=== PATIENT | female | born 1975 | race Two or more races ===

== ENCOUNTER → 2024-12-23 | Outpatient (CLI) | payer MEDICAID, SELFPAY ==
--- NOTE | 2024-12-23 16:00 | XR_ITS ---
Examination: CT abdomen without contrast. Coronal 2-D reconstructions. Sagittal 2-D reconstructions. Date and time of exam:December 23, 2024, 1700 hours, comparison January 27, 2023 INDICATIONS: Hematuria unspecified, right upper abdominal pain left upper abdominal pain one year CTDI: vol (mGy): 6.92 DLP: (mGycm): 233. Technique: Axial images of the abdomen have been obtained, 3 mm slice thickness, without intravenous contrast 2-D sagittal coronal reconstructions Low dose protocols were performed. One or more of the following dose reduction techniques were used; automated exposure control, adjustment of the mA and/or KV according to patient size, use of iterative reconstruction technique. Findings: No focal liver or splenic lesions Absent gallbladder No pancreatic or adrenal mass 1 mm mid left renal calculus, coronal image 85 Aorta normal size Normal appendix No bowel obstruction IMPRESSION: 1 mm nonobstructing left renal calculus, no hydronephrosis or ureteral calculi
[2024-12-23 16:23] LABS: HCG Qualitative,Urine Negative
== END | disposition home or self-care (01) ==
PROVIDERS: Referring Provider Physician Assistant; Visit Provider Physician Assistant
DX: N20.0 Calculus of kidney (principal); Z32.00 Encounter for pregnancy test, result unknown
CPT/HCPCS: 74150; 81025